=== PATIENT | male | born 1945 | race Caucasian/White ===

== ENCOUNTER 2017-11-25 21:50 | Inpatient (IN) | payer OTHER ==
[~2017-11-25] VITALS: Ht 180.3 cm; Wt 74.4 kg
[~2017-11-25 21:50] MED LIST: ADULT LOW DOSE81 MG PO; AMANTADINE100 M1 PO; LIPITOR40 MG PO; LOVASTAT10 PO; PLAVIX 75 MG TA75 MG PO; SYNTHROID100 MCG PO; TOPROL XL50 MG PO; WELLBUTRIN XL150 M1 PO
[2017-11-25 21:51] VITALS: BP 142/80
[2017-11-25 22:30] LABS: BE -12.4 mmol/L (-2 to +3); HCO3 13.3 mmol/L (22.0-26.0); PCO2 30.2 mmHg (35.0-45.0)
[2017-11-25 22:31] LABS: ABSOLUTE BASOPHILS 0.1 thou/uL (0.0-0.2); ABSOLUTE EOSINOPHILS 0.2 thou/uL (0.0-0.7); ABSOLUTE LYMPHOCYTES 1.7 thou/uL (0.8-5.3); ABSOLUTE MONOCYTES 0.8 thou/uL (0.0-1.2); BASOPHILS 0.7 %; EOSINOPHILS 2.4 %; HEMATOCRIT 35.4 % (42.0-52.0); HEMOGLOBIN 10.8 gm/dL (14.0-18.0); LYMPHOCYTES 16.9 %; MCH 25.1 pg (26.0-34.0); MCHC 30.4 g/dL (28.0-37.0); MCV 82.7 fL (80.0-100.0); MONOCYTES 8.5 %; MPV 9.5 fl. (7.2-11.1); NUCLEATED RBCS 0 /100WBC; PLATELET COUNT* 209 thou/uL (150-400); POLYS 71.5 %; RBC 4.29 mil/uL (4.50-6.00); RDW-CV 17.9 % (10.5-14.5); WBC 9.8 thou/uL (4.0-11.0)
[2017-11-25 22:33] LABS: pH 7.262 (7.340-7.450)
[2017-11-25 22:36] LABS: PO2 414.3 mmHg (75.0-100.0)
[2017-11-25 22:37] LABS: CALCIUM 8.5 mg/dL (8.5-10.1); CREATININE 1.4 mg/dL (0.6-1.3); POTASSIUM 4.3 mmol/L (3.5-5.1)
[2017-11-25 22:52] LABS: ALBUMIN 3.2 g/dL (3.4-5.0); INR 1.1; PROTIME 10.7 Seconds (9.20-11.50); TOTAL BILIRUBIN 0.7 mg/dL (<0.1-1.0); TOTAL PROTEIN 6.7 g/dL (6.4-8.2)
[2017-11-25 22:54] LABS: TROPONIN-I LEVEL 3.63 ng/mL (<0.06)
--- NOTE | 2017-11-25 23:14 | NUR ---
FAMILY AT BEDSIDE
[2017-11-26] VITALS (13 sets, daily range): BP systolic 98–125; BP diastolic 59–73
--- NOTE | 2017-11-26 00:32 | NUR ---
JOHN GREGORY TAKEN BY JUAN JOSE SAHA
[2017-11-26 01:56] LABS: HEMATOCRIT 30.4 % (42.0-52.0); HEMOGLOBIN 9.8 gm/dL (14.0-18.0); MCHC 32.2 g/dL (28.0-37.0); MCV 80.7 fL (80.0-100.0); MPV 9.4 fl. (7.2-11.1); RBC 3.77 mil/uL (4.50-6.00); RDW-CV 18.1 % (10.5-14.5); WBC 7.9 thou/uL (4.0-11.0)
[2017-11-26 02:23] LABS: ALBUMIN 2.8 g/dL (3.4-5.0); CALCIUM 7.8 mg/dL (8.5-10.1); POTASSIUM 4.7 mmol/L (3.5-5.1); TOTAL BILIRUBIN 0.5 mg/dL (<0.1-1.0); TOTAL PROTEIN 5.6 g/dL (6.4-8.2)
[2017-11-26 03:31] LABS: BE -3.2 mmol/L (-2 to +3); HCO3 20.5 mmol/L (22.0-26.0); PCO2 32.1 mmHg (35.0-45.0); PO2 73.8 mmHg (75.0-100.0); pH 7.424 (7.340-7.450)
--- NOTE | 2017-11-26 07:31 | NUR ---
ADMITTED TO ICU BED 1 AT 0055 ON BIPAP. PTS SATS HAVE REMAINED >92% THROUGHOUT THE NIGHT. VSS. PT HAS DENIED CHEST PAIN AND SOA SINCE ADMIT. 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 CRITICAL ABG RESULTS RECEIVED AT 0233 AND 0655, BOTH CALLED TO DR TUCKER. PT HAS BEEN KEPT NPO FOR PROBABLE CARDIAC CATH TODAY. IVF INFUSING ORDERED. CALL LIGHT WITHIN REACH.
[2017-11-26 08:03] LABS: ANION GAP 9 mmol/L (7-16); BUN 15 mg/dL (7-18); CALCIUM 7.9 mg/dL (8.5-10.1); CHLORIDE 108 mmol/L (98-107); CHOLESTEROL 124 mg/dL (<200); CO2 25 mmol/L (21-32); CREATININE 1.1 mg/dL (0.6-1.3); GLUCOSE 160 mg/dL (70-99); HDL CHOLESTEROL 40 mg/dL (>40); LDL CHOLESTEROL 75 mg/dL (<100); POTASSIUM 4.4 mmol/L (3.5-5.1); SODIUM 142 mmol/L (136-145); TC:HDL 3.1 Ratio (Not establshd); TRIGLYCERIDE 45 mg/dL (<150); VLDL 9 mg/dL (<40)
[2017-11-26 08:04] LABS: SERUM ASSESSMENT Clear
--- NOTE | 2017-11-26 12:30 | NUR ---
PATIENT LEFT FOR BIOMASS PRODUCTION MANAGER AT THIS TIME. PT ASSESSMENT CHARTED. PT REPORTS FEELING A BIG IMPROVEMENT REGARDING HIS BREATHING. BIPAP TAKEN OFF AT 0745 AND REPLACED WITH 4L NC. PT'S O2 SATURATION 96-100%. NO COMPLAINTS OF CHEST PAIN PRIOR TO LEAVING. DAUGHTER BRANDON CALLED AND WAS UPDATED THAT PATIENT IS GOING TO BIOMASS PRODUCTION MANAGER. NO OTHER COMPLAINTS. VSS.
--- NOTE | 2017-11-26 13:01 | 2DMMODE ---
[place] [address] 2 D/M-MODE ECHOCARDIOGRAM Name: MAYELA JONES Room: 001[facility] IN [facility]#: [id number] Admission: 11/26/17 Attend Phys: Rod Munson, Discharge: Date of : 47 Date of Service: 11/26/17 1301 Report #: [id number] THIS REPORT FOR: //name// APPROVED REPORT Study performed: 11/26/2017 10:09:07 EXAM: Comprehensive 2D, Doppler, and color-flow Echocardiogram Patient Location: In-Patient Room #: 001 Status: routine BSA: 1.94 HR: 82 bpm BP: 99/64 mmHg Rhythm: NSR Other Information Study Quality: Good Indications Non STEMI Respiratory failure 2D Dimensions LVEF(%): 44.09 (>50%) IVSd: 12.22 (7-11mm) LVOT Diam: 22.47 (18-24mm) LVDd: 49.15 mm PWd: 10.01 (7-11mm) Ascending Ao: 36.85 (22-36mm) LVDs: 38.40 (25-40mm) Aortic Root: 36.56 mm Darby's LVEF: 44.09 % Volumes Left Atrial Volume (Systole) LA ESV Index: 33.30 mL/m2 Aortic Valve AoV Peak Miguel.: 1.10 m/s AO Peak Gr.: 4.88 mmHg LVOT Max P.31 mmHg AO Mean Gr.: 2.84 mmHg LVOT Mean P.06 mmHg LVOT Max V: 0.76 m/s AO V2 VTI: 23.02 cm LVOT Mean V: 0.47 m/s WILLIAMS (VTI): 2.65 cm2 LVOT V1 VTI: 15.37 cm AI [place]: 3.89 m/s2 AI PHT: 253.81 [place] [address] 2 D/M-MODE ECHOCARDIOGRAM Name: MAYELA JONES Room: [address] IN .R.#: [id number] Admission: 11/26/17 Attend Phys: Rod Munson, Discharge: Date of : 47 Date of Service: 11/26/17 1301 Report #: [id number] Mitral Valve E/A Ratio: 1.52 MV Decel. Time: 149.18 ms MV E Max Miguel.: 0.86 m/s MV PHT: 43.26 ms MVA (PHT): 5.09 cm2 TDI E/Lateral E': 10.75 E/Medial E': 12.29 Medial E' Miguel.: 0.07 m/s Lateral E' Miguel.: 0.08 m/s Pulmonary Valve PV Peak Miguel.: 0.62 m/s PV Peak Gr.: 1.55 mmHg Tricuspid Valve TR Peak Gr.: 29.80 mmHg RVSP: 34.00 mmHg Left Ventricle The left ventricle is mildly dilated Distal septum and distal anterior wall , entrire apex severely hypokinetic, other segments contract normally. There is normal left ventricular wall thickness. Left ventricular systolic function is moderately decreased. none LVEF is 35%. The left ventricular diastolic function is normal. Right Ventricle The right ventricle is normal size. The right ventricular systolic function is normal. Atria The left atrium size is normal. The right atrium size is normal. Aortic Valve The aortic valve is normal in structure. Mild aortic regurgitation. There is no aortic valvular stenosis. Mitral Valve The mitral valve is normal in structure. Mild mitral regurgitation. No evidence of mitral valve stenosis. Tricuspid Valve The tricuspid valve is normal in structure. Trace tricuspid regurgitation. The RVSP is 30-[place] [address] 2 D/M-MODE ECHOCARDIOGRAM Name: MAYELA JONES Room: [address] IN .R.#: [id number] Admission: 11/26/17 Attend Phys: Rod Munson, Discharge: Date of : 47 Date of Service: 11/26/17 1301 Report #: [id number] Pulmonic Valve The pulmonary valve is normal in structure. There is no pulmonic valvular regurgitation. Great Vessels The aortic root is normal in size. IVC is normal in size and collapses with >50% inspiration Pericardium There is no pericardial effusion. <Conclusion> LVEF is 35%. Distal septum and distal anterior wall , entrire apex severely hypokinetic, other segments contract normally. Mild aortic regurgitation. There is no aortic valvular stenosis. Mild mitral regurgitation. Trace tricuspid regurgitation. The RVSP is 30-35 mmHg. <ELECTRONICALLY SIGNED> By: Parminder Gamez MD, FACC 11/26/17 1301 1301 1301 Parminder Gamez MD, FACC /INF
--- NOTE | 2017-11-26 13:11 | EKG ---
[place] [address] ELECTROCARDIOGRAM REPORT Name: MAYELA JONES Room: [address] ADM IN M.R.#: [id number] Admission: 11/26/17 Attend Phys: Rod Munson MD Discharge: Date of : 47 Report #: [id number] THIS REPORT FOR: //name// [facility] ED Test Date: 2017-11-25 Test Time: 22:03:15 Pat Name: MAYELA JONES Department: Room: [address] Gender: M Deicer Kit Assembler: BD : 1945 Requested By: Samuel Sauceda Order Number: [id number] Reading MD: Parminder Gamez Measurements Intervals [place] Rate: 142 P: 242 TX: 73 QRS: 69 QRSD: 108 T: 126 QT: 279 QTc: 429 Interpretive Statements Sinus or ectopic atrial tachycardia LVH with secondary repolarization abnormality Anterior ST elevation, probably due to LVH Compared to ECG 07/26/2010 08:11:53 Left ventricular hypertrophy now present Early repolarization now present Sinus rhythm no longer present Right-axis deviation no longer present ST (T wave) deviation still present Electronically Signed On 11-26-2017 13:11:29 SKIN DRIER by Parminder Gamez [email or web address] <ELECTRONICALLY SIGNED> By: Parminder Gamez MD, FACC 11/26/17 1311 02 02 Parminder Gamez MD, FAC /EPI
--- NOTE | 2017-11-26 13:11 | EKG ---
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: BD : 1945 Requested By: Yessenia Michele Order Number: [id number] MD: Parminder Gamez Measurements Intervals [place] Rate: 111 P: 123 SC: 118 QRS: 54 QRSD: 97 T: 133 QT: 344 QTc: 468 Interpretive Statements Sinus tachycardia LVH with secondary repolarization abnormality Compared to ECG 07/26/2010 08:11:53 Left ventricular hypertrophy now present Early repolarization now present Sinus rhythm no longer present Right-axis deviation no longer present ST (T wave) deviation no longer present Electronically Signed On 11-26-2017 13:11:34 LIEUTENANT FIREFIGHTER by Parminder Gamez [email or web address] <ELECTRONICALLY SIGNED> By: Parminder Gamez MD, FACC 11/26/17 1311 2257 [id number] Parminder Gamez MD, FACC /EPI
--- NOTE | 2017-11-26 14:08 | NUR ---
WOUND CARE NOTE: CONSULT RECEIVED FOR STAGE 1, BUT PATIENT NOT IN ROOM. WILL ATTEMPT TO ASSESS TOMORROW.
[2017-11-26 14:43] LABS: BE -15.7 mmol/L (-2 to +3); PCO2 28.9 mmHg (35.0-45.0); PO2 65.9 mmHg (75.0-100.0)
[2017-11-26 14:48] LABS: pH 7.197 (7.340-7.450)
--- NOTE | 2017-11-26 16:17 | NUR ---
REPORT RECIEVED FROM CUSTODIAL MANAGER PATIENT CODED IN CUSTODIAL MANAGER DURING PROCEDURE WITH PEA. PROUNNANCED BY DR ALBRECHT. PT WAS RETURNED TO ICU BED ONE WITH FAMILY. MTN NOTIFIED REF NUMBER [id number]. HUMAIRA AT BEDSIDE FOR FAMILY DAUGHTER SUZANNE BUENO FAMILY SPOKESPERSON. DEEPALI AND ANIYA IN [facility] CHOOSEN BY FAMILY.
--- NOTE | 2017-11-26 16:33 | NUR ---
PT REQUESTED TO SPEAK WITH THE COMMITTEE MEMBER AGAIN IN REGARDS TO HOW THE EVENT HAPPENED. DR ALBRECHT RETURNED AND SPOKE WITH A LARGE GROUP OF THE FAMILY IN THE GRIVING ROOM ANSWERING ALL QUESTIONS AT THAT TIME.
--- NOTE | 2017-11-26 17:02 | NUR ---
PATIENT TRANSFERRED TO ROOM 101 DUE TO MULTIPLE FAMILY MEMBERS VISITING AT THIS TIME.
--- NOTE | 2017-11-26 18:12 | NUR ---
MTN TO CALL AND SPEAK WITH FAMILY STILL AND NOTIFY NURSING OF FAMILY'S WISHES. FAMILY WILL NOTIFY NURSING WHEN THEY ARE READY TO LEAVE, MORE FAMILY CONTINUES TO COME TO VISIT.
--- NOTE | 2017-11-27 07:40 | CON ---
[address] [address] CONSULTATION Name: MAYELA JONES Room: [address] IN M.R.#: [id number] Admission: 11/26/17 Attend Phys: Rod Munson MD Discharge: 11/26/17 Date of : 47 Report #: [id number] THIS REPORT FOR: //name// CC: Rod Taylor REASON FOR CONSULTATION: Acute respiratory failure, shortness of breath. HISTORY OF PRESENT ILLNESS: The patient is a 72-year-old male patient with history of smoking in the past, although he does not carry a diagnosis of COPD or asthma. He does not have oxygen at home, but he told me he has a rescue inhaler at home. He presented to the hospital with progressive shortness of breath of 2-3 days duration. He reported occasional wheezes and cough. He reported the cough is productive with yellowish secretions. He is not sure if he had any fever. He denied any sick contact. He denied any nasal discharge or runny nose, but he had some sore throat. When he presented to the ER, he was found to have elevated troponin and metabolic acidosis. Apparently, he was in respiratory distress, tachypneic, he was placed on BiPAP. This morning, he was taken off BiPAP, by nasal cannula. When I saw him, he was comfortable, he was able to be speak in full sentences. He denied any headache or blurring of vision. He denied any diarrhea or change in bowel habits. He denied any dysuria. He denied any lower extremity edema or swelling. He was given a dose of Lovenox and he will be starting heparin today. PAST MEDICAL HISTORY: History of smoking, hypertension, left ankle surgery, CVA in the past, carotid surgery x 3. HOME MEDICATIONS: Levothyroxine, aspirin, Plavix, atorvastatin, metoprolol, lovastatin. SOCIAL HISTORY: Ex-smoker, smoked for 15 years according to him, although it was reported in the chart, he smoked 2 packs per day for 40 years. He reported that he drinks alcohol every week. REVIEW OF SYSTEMS: Full system review of the patient negative other than as mentioned above. PHYSICAL EXAMINATION: VITAL SIGNS: His blood pressure is 109/66, pulse rate of 89, afebrile. HEAD: Normocephalic, atraumatic. Oral cavity, dry mucous membrane, no teeth. External ear looks healthy and normal. Nasal passage is patent. NECK: Supple. No palpable lymph node. No palpable thyroid. Trachea central. CHEST: Diminished air movement bilaterally with prolonged expiratory phase, occasional wheezes, right lower lobe crackles. HEART: S1, S2; no murmur. ABDOMEN: Benign, soft, lax, [place] [address] CONSULTATION Name: MAYELA JONES Room: [address] IN M.R.#: [id number] Admission: 11/26/17 Attend Phys: Rod Munson MD Discharge: 11/26/17 Date of : 47 Report #: [id number] LOWER EXTREMITIES: No edema. No calf tenderness. MUSCULOSKELETAL: Normal inspection. No deformities. LYMPHATICS: No palpable lymph node. PSYCHIATRIC: Mood and affect appropriate. Good insight and judgment. SKIN: Normal for age and race. LABORATORY DATA: His chest x-ray showed infiltrates bilaterally basally, possible atelectasis. His white blood count was 9.8, hemoglobin 10.8 and platelets of 209. His creatinine initially was elevated today, is 1.1. His ABGs initially 7.26/30/414 on BiPAP; this morning 7.42/32/73 again on BiPAP. His D-dimer was elevated and his troponin was elevated. BNP was elevated too. IMPRESSION: 1. Acute hypoxic respiratory failure. 2. Pneumonia. 3. Chronic obstructive pulmonary disease. 4. Non-ST elevation myocardial infarction. 5. History of smoking. PLAN: At this point, I would continue the antibiotics. He is on levofloxacin or Rocephin at this point. Follow blood cultures, continue nebulization treatment, we will add steroids. He is comfortable with BiPAP, I would keep him at this point. I agree with the CTA of the chest and Doppler ultrasound of the lower extremities. Further cardiac workup per Cardiology. We will follow along with you. Thank you for the consult. <ELECTRONICALLY SIGNED> By: Patricia Worley MD 11/27/17 0740 1020 [id number] Rodriguez MD /nt
--- NOTE | 2017-11-27 15:04 | CARD ---
[address] [address] CARDIAC CATH REPORT Name: MAYELA JONES Room: [address] IN .R.#: [id number] Admission: 11/26/17 Attend Phys: Rod Munson MD Discharge: 11/26/17 Date of : 47 Report #: [id number] THIS REPORT FOR: //name// APPROVED REPORT Patient Details Patient Status: In-Patient Room #: 001 The patient is a 72 year-old male Event Personnel Parminder Gamez Vacuum Worker, Meli Coelho RN Inspector Quality Assurance, Maya Camarena, Garo Huynh (R) Ashley Cyr John Occupational Health Physiotherapist Procedures Performed Art Access - R femoral artery* , Left Heart Catheterization, Selective Right and Left Coronary Angiography Indication CHF Current Status: Yes , Non-STEMI , Heart failure Risk Factors Hypercholesterolemia, Hypertension Previous Procedures/Diagnoses Previous SC Admission/Lab Medications/Medications given during procedure Angiomax bolus and infusion Procedure Narrative The patient was brought urgently to the Cardiac Catheterization Laboratory and was prepped and draped in a sterile manner. The right femoral was infiltrated with 1% Lidocaine subcutaneous anesthesia. A [place] 6 FR sheath was inserted into the right femoral artery. Coronary angiography was performed using coronary diagnostic catheters. The right coronary system was accessed and visualized with a Diagnostic JR 4 6FR catheter. The left coronary system was accessed and visualized with a Diagnostic JL 6FR catheter. The left ventricle was accessed and visualized with a Diagnostic 6FR PIGTAIL catheter. Left ventricular/Aortic Valve gradient assessed via catheter pullback. Left ventriculogram was performed in ABDI projection. Intra[place] [address] CARDIAC CATH REPORT Name: MAYELA JONES Room: [address]#: [id number] Admission: 11/26/17 Attend Phys: Rod Munson MD Discharge: 11/26/17 Date of : 47 Report #: [id number] Sedation start time: 13:15 Case end Time: 14:52 Fluoro Time: 30.4 minutes Dose: DAP [id number] cGycm2 3839.33 mGy Contrast Type and Amount: Visipaque 500 ml Diagnostic Cath Left Main 0% narrowing LAD 40% followed by heavily calcified eccentric 95% proximal LAD stenosis with 50% mid and distal LAD narrowings Circumflex 40% proximal 60% mid and 50% distal circumflex narrowings, this being a nondominant vessel Right Coronary Dominant vessel which is totally occluded in its midportion with [id number] collaterals filling a skeleton of the distal right coronary artery Ramus 90% heavily calcified ostial stenosis IVUS Findings Trek RX 2.25 X 12 Hemodynamics The aortic pressure is 130/59 mmHg with a mean of mmHg. The left ventricular pressure is 140/17 mmHg with a mean of mmHg. The left ventricular end diastolic pressure is 33 mmHg. There was no gradient across the aortic valve upon pullback. PCI Technique Lesion Anticoagulation was achieved with Angiomax. Percutaneous coronary intervention was performed on the proximal left anterior descending artery segment. The lesion stenosis prior to intervention was 95% with FABIOLA 3 flow. A 6F XB 4.0 Guide Catheter was used to engage the LCA ostium. A IG: ProwaterFlex 180CM Interventional Guidewire was used to cross the lesion. BALLOON DILATION A Balloon catheter Trek RX 2.5 X 12 was inserted and inflated up to 18atm for 11seconds. Repeat angiography revealed the following post-dilatation results: 90% residual narrowing as it was unable to crack the proximal stenosis with a 2.5 x 12 mm balloon. Final angiography reveals 90 % stenosis with FABIOLA 0 flow. COMMENTS I was unable alter the structure of the high-grade proximal LAD stenosis despite inflation with a 2.5 x 12 Trek to 18 [place] [address] CARDIAC CATH REPORT Name: MAYELA JONES Room: [address] IN [facility]#: [id number] Admission: 11/26/17 Attend Phys: Rod Munson MD Discharge: 11/26/17 Date of : 47 Report #: [id number] intimal disruption with total occlusion distally at this point, and I was able to restore FABIOLA-3 flow with inflation of a 2.25 x 12 Trek inflated to 10 julianne. I then withdrew this to the proximal LAD site and inflated at to 16-18 julianne without alteration of the high-grade proximal LAD stenosis. There was, however, recurrence of the distal dissection with FABIOLA 0 flow to the distal LAD. The patient became hemodynamically unstable as well as demonstrating respiratory failure. We proceeded with intubation and controlled ventilation. We attempted hemodynamic support with external cardiac massage boluses of epinephrine, dopamine infusion, 2 Amps of sodium bicarbonate and continued excellent cardiac massage. I was unable to restore satisfactory flow to the distal LAD, and this context, the patient continued to demonstrate either ventricular fibrillation or pulseless electrical activity. Ventricular defibrillation was reverted to a stable but un- perfused rhythm with defibrillation. We continued extra cardiac massage throughout to achieve satisfactory systemic pressure, but only through the force created by external cardiac massage. There was no systemic pressure without external cardiac massage. In the context of the persistent pulseless electrical activity and inability to restore perfusion to the LAD beyond the heavily calcified proximal segment, the patient at 1453. These issues were discussed in detail with the family. BALLOON DILATION A Balloon catheter Trek RX 2.25 X 12 was inserted and inflated up to 18.00atm for 24seconds. Additional Inflation: 18.00atm for 15seconds. Balloon Dilation A Balloon catheter NC Euphora 2.5x12 was inserted and inflated up to 16atm for 11seconds. Additional Inflation: 16atm for 12seconds. BALLOON DILATION A Balloon catheter NC Trek RX 2.5 X 8 was inserted and inflated up to 16.00atm for 10seconds. Additional Inflation: 16.00atm for 10seconds. Additional Inflation: 18.00atm for 16seconds. Conclusion #1 severe coronary artery disease characterized by the following: A heavily calcified eccentric 95% proximal LAD stenosis followed by sequential 50% mid and 60% distal LAD narrowing, B 40% proximal with 60% mid and 50% distal circumflex stenosis, this being a nondominant vessel, [address] [address] CARDIAC CATH REPORT Name: MAYELA JONES Room: [address] IN M.R.#: [id number] Admission: 11/26/17 Attend Phys: Rod Munson MD Discharge: 11/26/17 Date of : 47 Report #: [id number] C 95% heavily calcified ostial stenosis of the ramus intermedius, D dominant right coronary artery totally occluded in its midportion with [id number] collaterals filling a skeleton of the distal right coronary artery #2 severe impairment in left ventricular systolic function estimated ejection fraction being 25% with akinesis of the jaimie- lateral wall and apex with the anteroseptal segment functioning satisfactorily and the inferior wall being hypokinetic #3 unsuccessful attempts at percutaneous coronary intervention to the heavily calcified LAD with a 95% eccentric heavily calcified proximal stenosis which I was unable to crack with a 2.5 x 12 mm trek inflated to 18 julianne. #4 the patient developed distal dissection with FABIOLA 0 flow; I was able to transitorily restore FABIOLA-3 flow by balloon dilatation, but there was subsequent recurrence of FABIOLA 0 flow to the mid and distal LAD. #5 despite extensive efforts, I was unable to restore satisfactory flow to the mid and distal LAD, and the patient developed hemodynamic and respiratory insufficiency requiring intubation and extensive cardiopulmonary resuscitation efforts. Despite these described measures, the patient at 1453 hrs. <ELECTRONICALLY SIGNED> By: Brandon Ramirez MD, [facility] 11/27/17 1504 1504 [id number] Ramirez MD, FACC /INF
--- NOTE | 2017-12-03 09:43 | CON ---
[address] [address] CONSULTATION Name: MAYELA JONES Room: [address] M.R.#: [id number] Admission: 11/26/17 Attend Phys: Rod Munson MD Discharge: 11/26/17 Date of : 47 Report #: [id number] THIS REPORT FOR: //name// CC: Rod Taylor DATE OF SERVICE: 11/26/2017 CHIEF COMPLAINT: Shortness of breath. HISTORY OF PRESENT ILLNESS: The patient is a 72-year-old male with history of chronic obstructive lung disease and peripheral vascular disease, presented with acute shortness of breath, but this had been progressive over the last 7-10 days according to the patient. His presenting ECG demonstrated a sinus rhythm with ST-segment depression diffusely. He was admitted and treated for COPD exacerbation in the ICU where he presented with sats in the low to mid 70s. With oxygen supplementation and nebulizer therapies, his respiratory function has improved and his O2 sat on 2 liters nasal cannula is in the 90%-92% range. His shortness of breath symptoms have resolved. He never complained of having chest discomfort or chest tightness. His chest x-ray was compatible more with COPD rather than congestive heart failure. However, his cardiac troponin levels have been abnormal. This morning, his troponin I was 24.89. On admission, it was 3.63. He denies tachypalpitations. He has remained in sinus rhythm. He has a history of peripheral vascular disease and denies any new neuro symptoms, slurred speech, numbness, weakness, leg pain or cramping. He had been apparently prescribed clopidogrel by his vascular surgeon of which he cannot remember the name. He had a vascular procedure revascularization at [facility]. However, he has not been taking his Plavix. He takes aspirin intermittently. SOCIAL HISTORY: He has a history of heavy tobacco use. He did not actively use any drugs, but he does smoke 2 packs per day and has done so for more than 40 years. He drinks also quite frequently. HOME MEDICATIONS: Reported include Synthroid 100 mcg daily, aspirin, Plavix, atorvastatin 40 mg daily, Toprol-XL 50 mg p.o., which he takes b.i.d. and lovastatin 10 mg daily. PAST MEDICAL HISTORY: History of carotid endarterectomy and left lower extremity peripheral stenting procedures. He denies any history of strokes, TIA. He denies history of diabetes mellitus. He has aforementioned hypertension, hypothyroidism, [place] [address] CONSULTATION Name: MAYELA JONES Elena Room: [address] .R.#: [id number] Admission: 11/26/17 Attend Phys: Rod Munson MD Discharge: 11/26/17 Date of : 47 Report #: [id number] ALLERGIES: He has no known drug allergies. REVIEW OF SYSTEMS: CENTRAL NERVOUS SYSTEM: He denies headaches, blurry vision, numbness or weakness. MUSCULOSKELETAL: Positive leg cramping bilaterally. This is not really worsened over the last several days, though. CARDIOVASCULAR: From cardiovascular standpoint, he denies chest pain or pressure. Positive dyspnea on exertion, positive orthopnea, positive PND. Denies any peripheral edema. NEUROLOGIC: Has headaches, blurry vision. ENDOCRINE: Positive hyperlipidemia, positive hypothyroidism, history of diabetes. HEMATOLOGIC: No history of anemia. GASTROINTESTINAL: Denies any recent bleeding or black colored stools. GENERAL: Positive weight loss. SKIN: No rashes. GENITOURINARY: No dysuria or hematuria. PULMONARY: Positive obstructive lung disease. 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 FAMILY HISTORY: The patient has a positive family history of high blood pressure. No history of sudden . PAST SURGICAL HISTORY: As above. He has had a carotid endarterectomy and lower extremity peripheral angioplasty. PHYSICAL EXAMINATION: VITAL SIGNS: Blood pressure this morning 110/66 with a sat of 97% on 2 liters nasal cannula. Pulse rate is 89. In the room when I was talking to him, his sat was in the 91%-93% range. He is in the sinus rhythm. GENERAL: Thin elderly male. He is alert, oriented, no apparent distress. He is resting flat comfortably. HEENT: Eyes: EOMs intact. No facial asymmetry. NECK: Supple. No jugular venous distention. I cannot hear bruits. CARDIOVASCULAR: Regular. I cannot hear a murmur, rub or gallop. Heart tones are distant. LUNGS: Diminished breath sounds. ABDOMEN: Soft, nontender. EXTREMITIES: There is no peripheral edema. Pulses: His radial pulse is +1 on both sides. His femoral pulses are 1-2 bilaterally. Distal dorsalis pedis pulses are very faint 0-1, but distal extremities are warm. NEUROLOGIC: There are no focal deficits. PSYCHIATRIC: The patient has appropriate mood and affect. GASTROINTESTINAL: There is no abdominal tenderness on palpation. [address] [address] CONSULTATION Name: MAYELA JONES Room: [address] .R.#: [id number] Admission: 11/26/17 Attend Phys: Rod Munson MD Discharge: 11/26/17 Date of : 47 Report #: [id number] IMAGING STUDIES: Portable chest x-ray reveals moderate increased density in the medial lung regions bilaterally, possible interstitial pneumonitis. LABORATORY DATA: Troponins as noted above. Hemoglobin is 9.8, white blood count is 7.9, platelet count is 235,000. INR is 1.1. Sodium is 142, potassium 4.4, chloride is 108, BUN is 15, creatinine is 1.1, lactic acid was 2.1. Glucose was 160 on admission. AST 76, ALT 17. Troponin I is 24.89. BNP is 8878. Total cholesterol is 124, LDL 75, HDL is 40, ratio is 2.1. Toxicology was negative. IMPRESSION: 1. Non-ST elevation myocardial infarction in the setting of acute respiratory failure likely from a combination of either left ventricular dysfunction and mild congestive heart failure and chronic obstructive pulmonary disease exacerbation. The patient has had a non-ST segment elevation myocardial infarction. There were diffuse ST-segment changes on his presenting ECG and I was able to compare to a previous study where these were not present. Based on his high risk factor profile and significantly elevated troponin I level, I have recommended further evaluation with diagnostic cardiac catheterization if his respiratory function remained stable over the course of this morning. Briefly, he was on BiPAP, but presently, he is tolerating O2 per nasal cannula. I would like to evaluate him with an echocardiogram. 2. Peripheral vascular disease. He had been off of his Plavix therapy, so he is not anticoagulated and I would like to start him on IV heparin per weight-based protocol along with his aspirin therapy. Likely if he requires percutaneous coronary intervention, he will need to be back on a dual antiplatelet therapy strategy. 3. Hypertension. This is stable. 4. Hyperlipidemia. He seems to be fairly well-treated to goal. I did not make any change. 5. Respiratory failure. As above, predominantly related to chronic obstructive pulmonary disease exacerbation, but he does have an elevated BNP level. We will assess his left ventricular function. He did not seem to have significant findings for heart failure on his x-ray. 6. Peripheral vascular disease. As mentioned above, he will likely be back on dual antiplatelet therapy. His pulses are diminished in the radial artery, but I think his femoral artery is appropriate for access point. <ELECTRONICALLY SIGNED> By: Parminder Gamez MD, FACC 12/03/17 [id number] [id number] Gamez MD, FACC /nt
== END 2017-11-26 21:50 | DRG 250 ==
LOC: M.ERS 21:50 → M.TBA-ER 11-26 00:18 → M.ICU 11-26 00:18 → M.ORTHSURG 11-26 16:57
PROVIDERS: Emergency Medicine; Internal Medicine; Internal Medicine Cardiovascular Disease; ADMIT Internal Medicine
DX: I21.4 Non-ST elevation (NSTEMI) myocardial infarction (principal); J15.6 Pneumonia due to other Gram-negative bacteria; J96.01 Acute respiratory failure with hypoxia; I26.99 Other pulmonary embolism without acute cor pulmonale; R65.11 Systemic inflammatory response syndrome (SIRS) of non-infectious origin with acute organ dysfunction; E87.2 Acidosis; J44.0 Chronic obstructive pulmonary disease with (acute) lower respiratory infection; I10 Essential (primary) hypertension; I73.9 Peripheral vascular disease, unspecified; E03.9 Hypothyroidism, unspecified; I25.10 Atherosclerotic heart disease of native coronary artery without angina pectoris; E78.5 Hyperlipidemia, unspecified; Z82.49 Family history of ischemic heart disease and other diseases of the circulatory system; Z86.73 Personal history of transient ischemic attack (TIA), and cerebral infarction without residual deficits; Z79.899 Other long term (current) drug therapy; Z87.891 Personal history of nicotine dependence; Z79.82 Long term (current) use of aspirin